=== PATIENT | male | born 1960 | race Caucasian/White ===

== ENCOUNTER 2017-02-13 10:49 | Day surgery (SDC) | payer OTHER ==
[~2017-02-13 10:49] MED LIST: RINGER'S SOLUTION,LACTATED 1,000 ML IV PRN; ceFAZolin SODIUM 1 GM VIAL IV PRN
[2017-02-13] MEDS ORDERED: RINGER'S SOLUTION,LACTATED 1,000 ML IV ONE (13:45)
[2017-02-13] MEDS ORDERED: BUPIVACAINE HCL 50 ML VIAL IJ ONE ×2 (14:05)
[2017-02-13 15:30] VITALS: BP 133/78
--- NOTE | 2017-02-16 14:47 | OR ---
Operative Report - Dictated Report Narrative: Date: 02/13/2017 Physician: Sivakumar Cooney M.D. [employer]: Flako Toure PA-C Preoperative diagnosis: Right thumb Trigger finger Postoperative diagnosis: Right thumb Trigger finger Procedure: Right thumb A1 vira release Anesthesia: MAC Plus local Complications: None Estimated blood loss: Minimal Tourniquet time: 10 Minutes at 250 mmHg Specimens: None Retained implants: None Drains: None Indications: Wilton Is a 56 year-old male who has been followed in my clinic with complaints of triggering of the right thumb. Physical exam as demonstrated triggering of the finger. Conservative measures have failed including but not limited to passage of time, activity modification, medications, and injections. The risks, benefits, and alternatives were discussed in clinic. The risks being bleeding, infection, nerve, tendon, blood vessel injury, persistent pain, wound competitions, need for additional procedures, and persistent symptoms. Consent was obtained in the clinic. Procedure: After marking the correct extremity in the preoperative holding area, a timeout was performed in the operating room. IV antibiotics consisting of 2 g of Ancef were administered prior to the procedure. A nonsterile tourniquet was applied to the operative upper arm. The arm was exsanguinated and the tourniquet was inflated to 250 mmHg. 0.5% Marcaine without epinephrine was infused into the projected incision site at the palmar flexion crease over the metacarpal phalangeal joint in line with the digit. Using loupe magnification, a transverse incision in the appropriate palmar flexion crease in line with the digit. Blunt dissection was carried down through the subcutaneous tissues using bipolar cautery for hemostasis. Care was taken to protect the digital nerves. Staying midline along the flexor tendon, the A1 vira was identified. A my was made in the proximal edge of the A1 vira with a 15 blade scalpel and tenotomy scissors were utilized in order to completely transect the A1 vira. Care was to stay midline and avoid transection of the A2 vira. Soft tissues overlying the flexor tendon proximal to the A1 vira were also released ensuring that there were no other compressive structures contributing to the triggering. The finger was placed through range of motion and demonstrated no additional catching. The tendons were visualized and mobilized out of the wound, and did not demonstrate any gross pathology or masses that required debridement. The tendons were noted to be intact. Once it was felt that we had adequately decompressed the flexor tendons as they passed under the A1 vira, the tourniquet was removed. Hemostasis was obtained with pressure and bipolar cautery. There was good return of color and capillary refill to the digit. Additional half percent Marcaine without epinephrine was infused into the skin edges. The wound was thoroughly irrigated. The skin was closed with interrupted 4-0 nylon. Sterile dressings consisting of Xeroform, 4 x 4, and Evin were applied. All sponge, needle, blade, and instrument counts were correct prior to closing the wounds. The patient was awoken and transferred to the post-anesthesia care unit in stable condition.
== END 2017-02-13 10:50 | disposition home or self-care (01) ==
LOC: AMB 10:49
PROVIDERS: ATTEND Orthopaedic Surgery
PROC: 0LN70ZZ Release Right Hand Tendon, Open Approach (ICD-10-PCS; principal; 2017-02-13 16:00)
DX: M65.311 Trigger thumb, right thumb (principal); M19.041 Primary osteoarthritis, right hand; E78.5 Hyperlipidemia, unspecified; K21.9 Gastro-esophageal reflux disease without esophagitis; K58.9 Irritable bowel syndrome, unspecified; F17.200 Nicotine dependence, unspecified, uncomplicated; Z68.41 Body mass index [BMI] 40.0-44.9, adult

== ENCOUNTER 2017-03-18 11:54 | Emergency (ER) | payer OTHER ==
--- NOTE | 2017-03-18 12:23 | ERNOTE ---
Chest Pain/Cardiac HPI Date of Service: 03/18/17 Chief Complaint: Chest Pain Time Seen by Provider: 03/18/17 12:15 Source: patient, family Exam Limitations: no limitations Immunizations: IMMUNIZATION HX Immunizations Up to Date Yes History of Influenza Vaccine No Hx Pneumococcal Vaccination No Allergies/Adverse Reactions: Allergies No Known Allergies Allergy (Verified 03/18/17 12:09) Home Medications: HOME MEDICATIONS Allopurinol [Zyloprim] 300 mg PO DAILY 05/11/14 [Last Taken Unknown] Famotidine [Pepcid AC] 20 mg PO DAILY PRN 05/12/14 [Last Taken Unknown] Niacin [Niaspan] 500 mg PO DAILY 05/12/14 [Last Taken Unknown] Omeprazole [Prilosec] 20 mg PO DAILY 05/12/14 [Last Taken Unknown] Aspirin [Aspirin Chewable] 162 mg PO DAILY 02/08/17 [Last Taken 12/15/16] Atorvastatin Calcium [Lipitor] 40 mg PO HS 02/08/17 [Last Taken Unknown] Blood-Glucose Meter [Blood Glucose Monitoring] 1 each MC TID 02/08/17 [Last Taken Unknown] Lisinopril [Prinivil] 10 mg PO DAILY 02/08/17 [Last Taken 02/12/17 22:00] [place]-3S/Dha/Epa/Fish Oil [Fish Oil 1,200 mg Softgel] 1 each PO DAILY 02/08/17 [ Last Taken Unknown] metFORMIN HCL [Glucophage] 1,000 mg PO BIDWM 02/08/17 [Last Taken Unknown] Narrative: Patient is a 56 year old male who presents to the emergency room with right-sided chest pain that started on Sunday when he bent down to untie his shoes. He reports some locates his pain of the right anterior fifth to sixth rib region. His pain is reproducible to palpation. The onset of his pain he rated it at moderate intensity but currently it is mild in intensity. He has been taking ibuprofen with some response. He denies any cardiac symptoms Timing: intermittent Severity/Quality: mild Chest Pain Radiation: no radiation Activities at Onset: activity Associated Symptoms: Present: denies symptoms Prior Chest Pain/Cardiac Workup: Reports: no prior cardiac workup Review of Systems - Review of Systems Constitutional: Present: no symptoms reported EYE: Present: no symptoms reported ENT: Present: no symptoms reported Respiratory: Present: See HPI Cardiology: Present: no symptoms reported Gastrointestinal/Abdominal: Present: no symptoms reported Genitourinary: Present: no symptoms reported Musculoskeletal: Present: no symptoms reported Skin: Present: no symptoms reported Neurological: Present: no symptoms reported Endocrine: Present: no symptoms reported Hematologic/Lymphatic: Present: no symptoms reported Psych: Present: no symptoms reported - Patient's Past Medical History Patient History - Medical: Diabetes Type 2, GERD, Other Patient History - Cardiac/Respiratory: Hypertension, Hyperlipidemia Patient History - Cancer: No Hx of Cancer Patient History - Surgical Procedures: Appendectomy Patient History - Other: None - Family History Father Family History - Medical: , Diabetes Type 2 Family History - Cardiac/Respiratory: Myocardial Infarction Family History - Cancer: Other Mother Family History - Medical: Hypothyroidism Family History - Cardiac/Respiratory: No pertinent hx Family History - Cancer: No pertinent family hx - Social History Abuse History: No History of abuse Psych History: No pertinent hx Smoking Status: Never smoker Do you dip or chew tobacco: Yes - Immunizations Immunizations Up to Date: Yes Hx Pneumococcal Vaccination: No History of Influenza Vaccine: No Physical Exam - Physical Exam General Appearance: Present: wd/wn, alert, no apparent distress Head Exam: Present: normal inspection, no evidence of injury Eye Exam: PERRL: bilateral, EOMI: bilateral Ears, Nose, Throat: Present: normal ENT inspection Neck: Present: normal inspection, nontender, supple Respiratory: Present: no respiratory distress, normal breath sounds, chest tenderness - he appears to demonstrate some tenderness to palpation at the anterior fifth and sixth rib area. Cardiovascular/Chest: Present: no murmur Gastrointestinal/Abdominal: Present: normal bowel sounds, nontender, nondistended Extremity Exam: Present: normal inspection Neurological Exam: Present: oriented, normal mood/affect ED Progress - Results and Orders Patient's Lab Results:: I have reviewed the patient's lab results. - Vital Signs Patient's Vital Signs:: I have reviewed the patient's vital signs. Vital Signs: Vital Signs 03/18/17 12:06 Temperature 36.3 C L Pulse Rate 65 Respiratory 20 Rate Blood Pressure 183/96 O2 Sat by Pulse 96 Oximetry - EKG EKG: NSR, other - he appears to have a rate of 66, regular rhythm, no ectopy, no ST changes, ERS within normal limits. - Progress/Reassessment Chief Complaint: Chest Pain Progress:: Unchanged Progress Note-Subjective: 03/18/17 13:08 Reviewed blood work done on the emergency room with unremarkable findings. CBC is unremarkable for any white count. Troponin is within normal limits making myocardial infarction unlikely. During my physical exam I do think this could be costochondritis given the reproducible aspect of his chest pain. This is unlikely cardiac. We'll proceed on discharge patient home have him continue with ibuprofen which she was taken before he came to the emergency room Departure Clinical Impression: Costochondral junction syndrome - Departure Disposition: Home Follow Up Needed Condition: Stable Instructions: Costochondritis, [id number] Print Language: Setswana Additional Instructions: Patient Follow up with his primary care physician as needed. I do anticipates his pain to response to Nsaid.
[2017-03-18 12:27] LABS: Hematocrit 40.2 % (42.0-52.0); Hemoglobin 14.2 gm/dL (13.5-18.0); Mean Cell Volume 90.7 fl (78-100); Mean Corpuscular Hemoglobin 32.1 pg (27-31); Mean Corpuscular Hgb Conc 35.3 g/dl (32-36); Mean Platelet Volume 9.9 fl (6.0-9.5); Neutrophil # 5.2 K/mm3 (1.3-6.0); Neutrophil % 58.1 % (42-75.0); Platelet Count 183 K/mm3 (150-450); Red Blood Count 4.43 M/mm3 (4.7-6.0); Red Cell Distribution Width 12.7 % (11.5-14.0); White Blood Count 8.9 K/mm3 (4.0-10.5)
[2017-03-18 12:44] LABS: ALT 35 U/L (19-67); AST 22 U/L (0-48); Albumin * 3.8 gm/dl (3.4-5.0); Alkaline Phosphatase * 145 U/L (50-170); Anion Gap 14.7 mmol/L (6.8-13.8); BUN/Creatinine Ratio 15.1 (9.0-21.6); Bilirubin, Total 0.5 mg/dL (0.0-1.1); Blood Urea Nitrogen 13 mg/dL (6-23); Ca. Corrected For Albumin 8.5 mg/dL (8.4-10.2); Calcium * 8.7 mg/dL (7.9-10.9); Carbon Dioxide 24.4 mmol/L (24-32.6); Chloride 103 mmol/L (97-106); Glucose * 125 mg/dL (70-110); Potassium 4.1 mmol/L (3.4-4.6); Sodium 138 mmol/L (132-142); Total Protein 7.2 gm/dL (6.2-8.2); Troponin I Less than 0.017 ng/ml (0.00-0.10)
[2017-03-18] MEDS ORDERED: KETOROLAC TROMETHAMINE 30 MG/ML VIAL IV ONE (12:49)
[2017-03-18] MEDS ORDERED: KETOROLAC TROMETHAMINE 30 MG/ML VIAL ONE (12:50)
[2017-03-18 13:24] VITALS: BP 131/90
== END 2017-03-18 13:36 | disposition home or self-care (01) ==
LOC: ER 11:54
DX: M94.0 Chondrocostal junction syndrome [Tietze] (principal); F17.220 Nicotine dependence, chewing tobacco, uncomplicated

== ENCOUNTER 2017-03-26 07:57 | Observation (INO) | payer OTHER ==
[2017-03-26] MEDS ORDERED: ASPIRIN 81 MG TAB.CHEW PO ONE (08:07)
[2017-03-26] MEDS ORDERED: ASPIRIN 81 MG TAB.CHEW ONE (08:12)
[2017-03-26] MEDS: NITROGLYCERIN 0.4 MG/TAB BTL SL PRN ×2 (08:12→08:25)
--- NOTE | 2017-03-26 08:19 | ERNOTE ---
Chest Pain/Cardiac HPI Time Seen by Provider: 03/26/17 08:00 Source: patient, family Exam Limitations: no limitations Immunizations: IMMUNIZATION HX Immunizations Up to Date Yes History of Influenza Vaccine No Hx Pneumococcal Vaccination No Allergies/Adverse Reactions: Allergies No Known Allergies Allergy (Verified 03/26/17 10:38) Home Medications: HOME MEDICATIONS Allopurinol [Zyloprim] 300 mg PO DAILY 05/11/14 [Last Taken Unknown] Famotidine [Pepcid AC] 20 mg PO DAILY PRN 05/12/14 [Last Taken Unknown] Niacin [Niaspan] 500 mg PO DAILY 05/12/14 [Last Taken Unknown] Omeprazole [Prilosec] 20 mg PO DAILY 05/12/14 [Last Taken Unknown] Aspirin [Aspirin Chewable] 162 mg PO DAILY 02/08/17 [Last Taken 12/15/16] Atorvastatin Calcium [Lipitor] 40 mg PO HS 02/08/17 [Last Taken Unknown] Blood-Glucose Meter [Blood Glucose Monitoring] 1 each MC TID 02/08/17 [Last Taken Unknown] Lisinopril [Prinivil] 10 mg PO DAILY 02/08/17 [Last Taken 02/12/17 22:00] [place]-3S/Dha/Epa/Fish Oil [Fish Oil 1,200 mg Softgel] 1 each PO DAILY 02/08/17 [ Last Taken Unknown] metFORMIN HCL [Glucophage] 1,000 mg PO BIDWM 02/08/17 [Last Taken Unknown] Narrative: 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 He ambulates into the ER but still feels like he might be passing out. He is a diabetic,took his meds last night, does not eat breakfast. Severity/Quality: moderate, burning, pressure Location: left chest Chest Pain Radiation: arms Activities at Onset: other Nitro Today/Relief: no nitro taken today Aspirin Treatment Today: no aspirin today Associated Symptoms: Present: dizziness, shortness of breath. Absent: nausea, vomiting, abdominal pain Prior Chest Pain/Cardiac Workup: Reports: prior chest pain. Denies: heart attack, cardiac cath Prior Treatment: Reports: recently seen. Denies: currently on antibiotics Review of Systems - Review of Systems Constitutional: Present: malaise. Absent: recent illness EYE: Absent: blurred vision, double vision ENT: Absent: nose congestion, sore throat Respiratory: Present: See HPI, shortness of breath. Absent: cough Cardiology: Present: See HPI, chest pain Gastrointestinal/Abdominal: Absent: nausea, vomiting, abdominal pain Genitourinary: Present: no symptoms reported Musculoskeletal: Absent: back pain Skin: Absent: rash Neurological: Present: headache - slight, dizziness/light-headedness. Absent: pre-existing deficit Psych: Present: anxiety - Patient's Past Medical History Patient History - Medical: Diabetes Type 2, GERD, Other Patient History - Cardiac/Respiratory: Hypertension, Hyperlipidemia Patient History - Cancer: No Hx of Cancer Patient History - Surgical Procedures: Appendectomy Patient History - Other: None - Family History Father Family History - Medical: , Diabetes Type 2 Family History - Cardiac/Respiratory: Myocardial Infarction Family History - Cancer: Other Mother Family History - Medical: Hypothyroidism Family History - Cardiac/Respiratory: No pertinent hx Family History - Cancer: No pertinent family hx - Social History Living Situations: home Abuse History: No History of abuse Psych History: No pertinent hx Smoking Status: Never smoker Have you smoked in the past 12 months: No Drug Use: none - Immunizations Immunizations Up to Date: Yes Hx Pneumococcal Vaccination: No History of Influenza Vaccine: No Physical Exam - Physical Exam General Appearance: Present: wd/wn, alert, no apparent distress, anxious Head Exam: Present: normal inspection, no evidence of injury Eye Exam: Normal inspection: bilateral, PERRL: bilateral, EOMI: bilateral Ears, Nose, Throat: Present: normal ENT inspection, normal pharynx Neck: Present: normal inspection, nontender, supple Respiratory: Present: no respiratory distress, normal breath sounds, no accessory muscle use, chest nontender, lungs clear Cardiovascular/Chest: Present: regular rate, rhythm, no murmur, normal peripheral pulses Gastrointestinal/Abdominal: Present: normal bowel sounds, nontender, nondistended, soft Extremity Exam: Present: no edema Neurological Exam: Present: alert, oriented, normal mood/affect, no motor/ sensory deficits. Absent: facial droop Skin Exam: Present: normal color, warm/dry ED Progress - Results and Orders Patient's Lab Results:: I have reviewed the patient's lab results. - Vital Signs Patient's Vital Signs:: I have reviewed the patient's vital signs. Vital Signs: Vital Signs 03/26/17 03/26/17 07:57 08:14 Pulse Rate 74 72 Respiratory 12 Rate Blood Pressure 162/92 O2 Sat by Pulse 97 Oximetry - EKG EKG: NSR, no ST T wave changes, other - no acute changes EKG read: Interp. by me - Progress/Reassessment Progress Note-Subjective: 03/26/17 09:15 patient has no chest pain currently discussed test results and limitation of test to rule out CAD 03/26/17 09:30 no symptoms, offered admission, patient agreed 03/26/17 09:35 discussed with vibha Silvestre to admit for observation Departure Clinical Impression: Chest pain Qualifiers: Chest pain type: precordial pain Qualified Code(s): R07.2 - Precordial pain - Departure Disposition: [facility] Condition: Good
[2017-03-26 08:22] LABS: Hemoglobin 14.9 gm/dL (13.5-18.0); Mean Cell Volume 91.3 fl (78-100); Mean Corpuscular Hemoglobin 32.4 pg (27-31); Mean Corpuscular Hgb Conc 35.5 g/dl (32-36); Mean Platelet Volume 10.4 fl (6.0-9.5); Neutrophil # 3.7 K/mm3 (1.3-6.0); Platelet Count 195 K/mm3 (150-450); Red Cell Distribution Width 12.9 % (11.5-14.0); White Blood Count 8.1 K/mm3 (4.0-10.5)
[2017-03-26 08:39] LABS: ALT 40 U/L (19-67); AST 24 U/L (0-48); Albumin * 3.9 gm/dl (3.4-5.0); Alkaline Phosphatase * 137 U/L (50-170); Anion Gap 15.1 mmol/L (6.8-13.8); BUN/Creatinine Ratio 13.8 (9.0-21.6); Bilirubin, Total 0.7 mg/dL (0.0-1.1); Blood Urea Nitrogen 13 mg/dL (6-23); Ca. Corrected For Albumin 8.5 mg/dL (8.4-10.2); Calcium * 8.7 mg/dL (7.9-10.9); Carbon Dioxide 24.9 mmol/L (24-32.6); Chloride 103 mmol/L (97-106); Glucose * 133 mg/dL (70-110); Sodium 139 mmol/L (132-142); Total Protein 7.4 gm/dL (6.2-8.2); Troponin I Less than 0.017 ng/ml (0.00-0.10)
--- NOTE | 2017-03-26 12:11 | HP ---
Chief Complaint - Chief Complaint Date of Service: 03/26/17 Time of Service: 11:50 Chief Complaint: chest pain History of Present Illness: Wilton Gonzalez, is a 56-year-old white male, with previous medical history of diabetes mellitus type 2, hyperlipidemia, gout, GERD, morbid obesity, who was admitted on 03/26/2017 because of chest pain. 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 He sat down and then started having chest pain described as chest tightness 5/10 radiating to his left upper extremity. He called his and she brought him to the emergency room where his first set of troponin and EKG were within normal limits. He was then admitted under our chest pain protocol. He is still having on and off chest pain but better. - Patient's Past Medical History Patient History - Medical: Diabetes Type 2, GERD, Other Patient History - Cardiac/Respiratory: Hypertension, Hyperlipidemia Patient History - Cancer: No Hx of Cancer Patient History - Surgical Procedures: Appendectomy Patient History - Other: None - Family History Father Family History - Medical: , Diabetes Type 2 Family History - Cardiac/Respiratory: Myocardial Infarction Family History - Cancer: Bladder Mother Family History - Medical: Hypothyroidism Family History - Cardiac/Respiratory: No pertinent hx Family History - Cancer: No pertinent family hx - Social History Living Situations: spouse Abuse History: No History of abuse Psych History: No pertinent hx Smoking Status: Never smoker Have you smoked in the past 12 months: No Alcohol Use: occasionally Drug Use: none - Immunizations Immunizations Up to Date: Yes Hx Pneumococcal Vaccination: No History of Influenza Vaccine: No Review Of Systems (GEN) - Review of Systems Generalized/Overall Review: Absent: Weakness, Chills, Fever EENTM: Present: Other - blanketing of vision Cardiac: Present: Chest Pain, Other - presyncope. Absent: Palpitations Abdominal: Absent: Nausea, Vomiting Genitourinary: Absent: Urgency, Frequency Musculoskeletal: Absent: Joint Pain Immunizations: IMMUNIZATION HX Immunizations Up to Date Yes History of Influenza Vaccine No Hx Pneumococcal Vaccination No Allergies/Adverse Reactions: Allergies Allergy/AdvReac Type Severity Reaction Status Date / Time No Known Allergies Allergy Verified 03/26/17 10:38 Home Medications: HOME MEDICATIONS Allopurinol [Zyloprim] 300 mg PO DAILY 05/11/14 [Last Taken Unknown] Famotidine [Pepcid AC] 20 mg PO DAILY PRN 05/12/14 [Last Taken Unknown] Niacin [Niaspan] 500 mg PO DAILY 05/12/14 [Last Taken Unknown] Omeprazole [Prilosec] 20 mg PO DAILY 05/12/14 [Last Taken Unknown] Aspirin [Aspirin Chewable] 162 mg PO DAILY 02/08/17 [Last Taken 12/15/16] Atorvastatin Calcium [Lipitor] 40 mg PO HS 02/08/17 [Last Taken Unknown] Blood-Glucose Meter [Blood Glucose Monitoring] 1 each MC TID 02/08/17 [Last Taken Unknown] Lisinopril [Prinivil] 10 mg PO DAILY 02/08/17 [Last Taken 02/12/17 22:00] [place]-3S/Dha/Epa/Fish Oil [Fish Oil 1,200 mg Softgel] 1 each PO DAILY 02/08/17 [ Last Taken Unknown] metFORMIN HCL [Glucophage] 1,000 mg PO BIDWM 02/08/17 [Last Taken Unknown] Exam - Exam Vital Signs: Vital Signs - Last Taken Temp 36.7 C 03/26/17 10:42 Pulse 60 03/26/17 10:42 Resp 18 03/26/17 10:42 BP 121/73 03/26/17 10:42 Pulse Ox 98 03/26/17 10:42 Constitutional: Present: Alert, Oriented x3, Cooperative ENT Exam: Present: hearing grossly normal Eye Exam: bilateral eye: normal inspection, PERRL, EOMI Neck: Present: supple, other - faint carotid pulses Respiratory: Present: normal breath sounds, No rales, No wheezing Cardiovascular/Chest: Present: regular rate, rhythm, no JVD, no murmur Peripheral Pulses: carotid (R): 1+, carotid (L): 1+ Abdomen: Present: Normal bowel sounds, soft, nontender, nondistended Extremity: Present: no pedal edema, no calf tenderness Diagnostic Studies: Laboratory Results WBC 8.1 K/mm3 (4.0-10.5) 03/26/17 08:15 RBC 4.60 M/mm3 (4.7-6.0) L 03/26/17 08:15 Hgb 14.9 gm/dL (13.5-18.0) 03/26/17 08:15 Hct 42.0 % (42.0-52.0) 03/26/17 08:15 MCV 91.3 fl (78-100) 03/26/17 08:15 MCH 32.4 pg (27-31) H 03/26/17 08:15 MCHC 35.5 g/dl (32-36) 03/26/17 08:15 RDW 12.9 % (11.5-14.0) 03/26/17 08:15 Plt Count 195 K/mm3 (150-450) 03/26/17 08:15 MPV 10.4 fl (6.0-9.5) H 03/26/17 08:15 Immature Gran % (Auto) 0.40 % (0.001-0.429) 03/26/17 08:15 Immature Gran # (Auto) 0.03 K/mm3 (0.000-0.0310) 03/26/17 08:15 Neutrophils % 46.0 % (42-75.0) 03/26/17 08:15 Lymphocytes % 42.1 % (20-51) 03/26/17 08:15 Monocytes % 9.9 % (0.0-9) H 03/26/17 08:15 Eosinophils % 1.4 % (0.0-3.0) 03/26/17 08:15 Basophils % 0.2 % (0.0-1.0) 03/26/17 08:15 Nucleated RBC % 0.0 k/mm3 (0-1) 03/26/17 08:15 Neutrophils # 3.7 K/mm3 (1.3-6.0) 03/26/17 08:15 Lymphocytes # 3.4 k/mm3 (1.5-3.5) 03/26/17 08:15 Monocytes # 0.8 k/mm3 (0.0-1.0) 03/26/17 08:15 Eosinophils # 0.1 k/mm3 (0.0-0.7) 03/26/17 08:15 Absolute Basophils 0.0 k/mm3 (0.0-0.1) 03/26/17 08:15 Sodium 139 mmol/L (132-142) 03/26/17 08:15 Plasma Sodium 140 mmol/L (130-142) 03/26/17 08:15 Potassium 4.0 mmol/L (3.4-4.6) 03/26/17 08:15 Chloride 103 mmol/L (97-106) 03/26/17 08:15 Carbon Dioxide 24.9 mmol/L (24-32.6) 03/26/17 08:15 Anion Gap 15.1 mmol/L (6.8-13.8) H 03/26/17 08:15 BUN 13 mg/dL (6-23) 03/26/17 08:15 Creatinine 0.94 mg/dL (0.4-1.4) 03/26/17 08:15 Est GFR (Non-Af Amer) 88 mL/min (60-130) 03/26/17 08:15 BUN/Creatinine Ratio 13.8 (9.0-21.6) 03/26/17 08:15 Random Glucose 133 mg/dL (70-110) H 03/26/17 08:15 Calcium 8.7 mg/dL (7.9-10.9) 03/26/17 08:15 Calcium Adj for Albumin 8.5 mg/dL (8.4-10.2) 03/26/17 08:15 Total Bilirubin 0.7 mg/dL (0.0-1.1) 03/26/17 08:15 AST 24 U/L (0-48) 03/26/17 08:15 ALT 40 U/L (19-67) 03/26/17 08:15 Alkaline Phosphatase 137 U/L (50-170) 03/26/17 08:15 Troponin I Less than 0.017 ng/ml (0.00-0.10) 03/26/17 08:15 Total Protein 7.4 gm/dL (6.2-8.2) 03/26/17 08:15 Albumin 3.9 gm/dl (3.4-5.0) 03/26/17 08:15 Assessment/Plan - Assessment/Plan (1) Chest pain Assessment: r/o ACS. will do serial troponin, and EKG x 2 . Will schedule him a nulcear threadmill stress test in the morning due to his multiple comorbidities. Problem: Acute Qualifiers: Chest pain type: precordial pain Qualified Code(s): R07.2 - Precordial pain (2) Diabetes mellitus type 2 in obese Assessment: continue with home medications. last HbA1c was 6.1 Problem: Chronic (3) Hyperlipidemia Assessment: continue with home medications Problem: Chronic (4) GERD (gastroesophageal reflux disease) Assessment: continue with home medications Problem: Chronic (5) Gout Assessment: continue with home medications Problem: Chronic (6) Morbid obesity Problem: Acute
[2017-03-26] MEDS ORDERED: MORPHINE SULFATE 4 MG/ML SYRG IV PRN (12:36)
[2017-03-26] MEDS ORDERED: ACETAMINOPHEN 325 MG TABLET PO PRN (12:38)
[2017-03-26] MEDS ORDERED: ATORVASTATIN CALCIUM 40 MG TABLET PO SCH (21:00)
[2017-03-26] MEDS: PANTOPRAZOLE SODIUM 20 MG TABLET.DR PO SCH (21:43)
[2017-03-27 05:33] LABS: Chol/HDL Risk Ratio 4.4 mg/dL (3.3-5.0)
--- NOTE | 2017-03-27 08:07 | PN ---
Progess Note - Interim Narrative: 03/27/17 08:06 Had no CP overnight. For stress today. Will follow up CUS official reading.
[2017-03-27] MEDS ORDERED: ALLOPURINOL 300 MG TABLET PO SCH (09:00)
[2017-03-27] MEDS ORDERED: ASPIRIN 81 MG TAB.CHEW PO SCH (09:00)
[2017-03-27] MEDS ORDERED: LISINOPRIL 10 MG TABLET PO SCH (09:00)
[2017-03-27] MEDS ORDERED: MORPHINE SULFATE 2 MG/ML DISP.SYRIN IV PRN (10:15)
[2017-03-27 10:42] VITALS: BP 131/75
[2017-03-27] MEDS: PANTOPRAZOLE SODIUM 20 MG TABLET.DR PO SCH (13:33)
--- NOTE | 2017-03-27 14:19 | DS ---
(1) Chest pain Diagnosis(s): AMI ruled out. Stress test was negative for ischemia or infarct. Problem: Resolved Qualifiers: Chest pain type: precordial pain Qualified Code(s): R07.2 - Precordial pain (2) Diabetes mellitus type 2 in obese Problem: Chronic (3) Hyperlipidemia Problem: Chronic (4) GERD (gastroesophageal reflux disease) Problem: Chronic (5) Gout Problem: Chronic (6) Morbid obesity Problem: Acute Description of Stay: Wilton Gonzalez, is a 56-year-old white male, with previous medical history of diabetes mellitus type 2, hyperlipidemia, gout, GERD, morbid obesity, who was admitted on 03/26/2017 because of chest pain. 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 He sat down and then started having chest pain described as chest tightness 5/10 radiating to his left upper extremity. He called his and she brought him to the emergency room where his first set of troponin and EKG were within normal limits. He was then admitted under our chest pain protocol. He was CP free over night. His 3 sets of EKG and troponin did not show abnormal findings. His stress test showed no evidence of ischemia or infarct. His CUS did show 16-49% carotid artery stenosis of his [place] and LICA. He is stable to be discharged today and will schedule him an Echo with bubble study and an MRI of the brain on an outpatient basis. Procedures Performed: none Discharge Disposition: Home self care Disposition: Home self-care Condition: Good Discharge Activity: Activity as tolerated Discharge Diet: Consistent carbs Problem Oriented Discharge Instructions to Patient/Family: Chest Wall Pain, [id number] Additional Patient Instructions (free text): Follow up with PCP in [address] Aguilar on 04-11-17 @ 11:15am. Outpatient appointments for MRI of the brain without contrast is scheduled on 03-30-17 @ 8:00am. to follow with an Echocardiogram at 9:00 am. Prescriptions (Any new or edited meds): Acetaminophen [Tylenol] 650 mg PO Q6H PRN #30 tablet PRN Reason: Mild Pain Aspirin [Aspirin Chewable] 325 mg PO DAILY #30 tab.chew Complete Home Medications List: Complete Home Medication List: Allopurinol [Zyloprim] 300 mg PO DAILY 12/29/14 Famotidine [Pepcid AC] 20 mg PO DAILY PRN 05/12/14 Niacin [Niaspan] 500 mg PO DAILY 05/12/14 Omeprazole [Prilosec] 20 mg PO DAILY 05/12/14 Atorvastatin Calcium [Lipitor] 40 mg PO HS 02/08/17 Blood-Glucose Meter [Blood Glucose Monitoring] 1 each MC TID 02/08/17 Lisinopril [Prinivil] 10 mg PO DAILY 02/08/17 [place]-3S/Dha/Epa/Fish Oil [Fish Oil 1,200 mg Softgel] 1 each PO DAILY 02/08/17 metFORMIN HCL [Glucophage] 1,000 mg PO BIDWM 02/08/17 Acetaminophen [Tylenol] 650 mg PO Q6H PRN #30 tablet 03/27/17 Aspirin [Aspirin Chewable] 325 mg PO DAILY #30 tab.chew 03/27/17 Amb Orders for Discharge: MRI Brain W/O Contrast Time Frame: 1 Week, Location: Determined By Patient US Echocardiogram Complete * Time Frame: 1 Week, Location: Determined By Patient
== END 2017-03-27 15:41 | disposition home or self-care (01) ==
LOC: ER 07:57 → MS 09:57
PROVIDERS: ADMIT Internal Medicine; ATTEND Internal Medicine
DX: R07.9 Chest pain, unspecified (principal); E11.9 Type 2 diabetes mellitus without complications; Z79.84 Long term (current) use of oral hypoglycemic drugs; I10 Essential (primary) hypertension; K21.9 Gastro-esophageal reflux disease without esophagitis; E78.5 Hyperlipidemia, unspecified; E66.01 Morbid (severe) obesity due to excess calories; Z68.41 Body mass index [BMI] 40.0-44.9, adult; M1A.9XX0 Chronic gout, unspecified, without tophus (tophi)
CPT/HCPCS: 36415; 71020; 78452; 80053; 80061; 84484; 85025; 93005; 93017; 93880; 99285; A9502; G0378